=== PATIENT | male | born 1980 | race Caucasian/White ===

== ENCOUNTER 2016-10-30 18:01 | Emergency (ER) | payer BC, OTHER ==
--- NOTE | 2016-10-30 18:41 | ED Physician Documentation ---
Eye Problem - HISTORIAN Historian: patient - HPI Stated Complaint: foreign matter in eye, L Chief Complaint: Eye Problems Onset: hours (2) Associated symptoms: pain, blurred vision Location: left eye Severity: mild Apparent Injury: yes Context: foreign body Where: home Further Comments: yes (Patient was pouring some liquid grout when it slpashed up into his left lateral eye. Patient washed eye with wash sloution. Was wearing a contact, not sure if contact came out with washing the eye. Not sure when last tetanus vac was.) - ROS CONST: no problems. denies: fever, chills - PAST HX Past History: none Allergies/Adverse Reactions: Allergies Allergy/AdvReac Type Severity Reaction Status Date / Time No Known Allergies Allergy Verified 10/30/16 18:16 Home Medications: Ambulatory Orders Medication Instructions Recorded NK [NK] 10/30/16 - SOCIAL HX Smoking History: non-smoker, chew (1 can a day) Alcohol Use: occasionally Drug Use: none - FAMILY HX Family History: no significant history - VITAL SIGNS Vital Signs: Vital Signs Temp Pulse Resp BP Pulse Ox 83 16 98 10/30/16 18:12 10/30/16 18:12 10/30/16 18:12 - REVIEWED ASSESSMENTS Nursing Assessment Reviewed: Yes Vitals Reviewed: Yes Eye Problem Physical Exam - Physical Exam General Appearance: alert, mild distress Visual Acuity: see nursing assessment Eyelids: nml inspection Conjunctiva and Sclera: injected (L) (lateral). No: exudate (L), foreign material (R), foreign material (L), subconjunctival hemorrhage (R), subconjunctival hemorrhage (L) Corneas: nml inspection, examined with fluorescein (L) EOM: intact Pupils: equal Anterior Chambers: nml inspection Post Segments: nml funduscopic (R), nml funduscopic (L) Head/ENT: nml inspection Skin: nml color, warm, skin intact Respiratory: no resp distress, chest non-tender. No: wheezes, rales, rhonchi Abdomen: non-tender, no organomegaly Neuro/Psych: oriented x3, mood/affect nml Discharge Clincal Impression: Conjunctivitis, chemical Qualifiers: Laterality: left Qualified Code(s): H10.212 - Acute toxic conjunctivitis, left eye Additional Instructions: Do not put contact in your left eye for one week. Use Gentak ophthalmic drops 2 drops in left eye 4 times a day for seven days. Home Medications: Ambulatory Orders NK [NK] 10/30/16 Condition: Stable Disposition: HOME, SELF-CARE Decision to Admit: NO Date of Decison to Admit: 10/30/16 Decision Time: 19:05
[2016-10-30] MEDS ORDERED: TETRACAINE HCL/PF 5% OPTH SOL OP ONE ×2 (18:44→18:45)
[2016-10-30] MEDS ORDERED: OPTH IRRIGATION SOLUTION 120 ML BTL OP ONE ×2 (18:45)
[2016-10-30] MEDS ORDERED: GENTAMICIN SULFATE 0.3% OPTH SOL OP ONE (19:01)
[2016-10-30] MEDS ORDERED: DIPH,PERTUSS(ACELL),TET VAC/PF 0.5 ML DISP.SYRIN IM ONE (19:14)
[2016-10-30] MEDS ORDERED: DIPH,PERTUSS(ACELL),TET VAC/PF 0.5 ML DISP.SYRIN IM SCH (20:00)
== END 2016-10-30 19:30 | disposition home or self-care (01) ==
LOC: ED 18:01
DX: H10.212 Acute toxic conjunctivitis, left eye (principal); F17.220 Nicotine dependence, chewing tobacco, uncomplicated
CPT/HCPCS: 90715; 99282; 99283

== ENCOUNTER 2017-08-22 14:14 | Emergency (ER) | payer BC ==
--- NOTE | 2017-08-22 14:35 | ED Physician Documentation ---
General Adult - HISTORIAN Historian: patient - HPI Stated Complaint: abd pain Chief Complaint: General Adult Onset: days ago (1) Timing: still present Severity: moderate Further Comments: yes (Pt is a 37 yo male with RLQ abd pain that began yesterday about 5 pm, about 22 hrs [employer]. Inititally pain was discomfort around her umbilicus. Later pain in the RLQ developed. Pt has been very nauseated, but has not vomited because there is nothing in his stomach, he says. Pt has not been eating and has no desire to eat anything.) - ROS CONST: other (malaise) EYES/ENT: none CVS/RESP: none GI/: abdominal pain, vomiting, nausea, other (loss of appetite) MS/SKIN/LYMPH: none - PAST HX Past History: none Other History: none Allergies/Adverse Reactions: Allergies Allergy/AdvReac Type Severity Reaction Status Date / Time No Known Allergies Allergy Verified 08/22/17 14:40 Home Medications: Ambulatory Orders Medication Instructions Recorded Cephalexin [Keflex] 500 mg PO QID 08/22/17 - SOCIAL HX Smoking History: cigarettes - FAMILY HX Family History: No - REVIEWED ASSESSMENTS Nursing Assessment Reviewed: Yes Vitals Reviewed: Yes Progress - Progress Progress: Zofran 4 mg IV NS [address] abd/pelvis w iv cotrast: Appendicitis. No evidence for abscess or perforation. Transfer to [facility]. Dr. Nelson. General Adult Physical Exam - PHYSICAL EXAM GENERAL APPEARANCE: moderate distress EENT: pharynx normal NECK: normal inspection, supple RESPIRATORY: no resp distress, chest non-tender, breath sounds normal CVS: reg rate & rhythm, heart sounds normal ABDOMEN: soft, normal bowel sounds, tenderness (RLQ), McBurney's point tenderne , rebound BACK: normal inspection SKIN: warm/dry, normal color EXTREMITIES: non-tender, normal range of motion, no evidence of injury NEURO: oriented X3, motor nml, sensation nml Discharge Clincal Impression: Acute appendicitis Qualifiers: Acute appendicitis type: unspecified acute appendicitis type Qualified Code(s) : K35.80 - Unspecified acute appendicitis Referrals: Primary Doctor,No [Primary Care Provider] - Condition: Stable Disposition: [facility] Decision to Admit: NO Decision Time: 15:41
[2017-08-22] MEDS: 0.9 % SODIUM CHLORIDE 500 ML IV ONE (14:49)
[2017-08-22] MEDS: ONDANSETRON HCL/PF 4 MG/ 2ML VIAL IVP ONE (14:50)
[2017-08-22 15:20] LABS: eGFR (African) > 60; eGFR (Non-African) > 60
[2017-08-22 15:55] VITALS: BP 141/78
--- NOTE | 2017-08-22 16:13 | Diagnostic Imaging Report ---
TYLOR FLORES [facility] [id number] [facility] [address] [place] [address]. 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 Findings: Liver demonstrates mild diffuse low attenuation. No central lesion. Spleen, adrenals, pancreas, kidneys and gallbladder are without gross irregularity. No abnormal enhancement. No gallstone. No suspicious renal calcifications bilaterally. No abnormal dilation of the ureters. No central calcifications. Bladder margin is within normal limits. Abdominal aorta without aneurysm or peripheral atherosclerotic disease. Cardiac silhouette not enlarged. No pericardial effusion. Bowel unopacified limiting evaluation. No abnormal small bowel dilation. Stool within the large bowel limiting sensitivity. Mesenteric stranding involving the base of the appendix/cecum. Appendix measures 12.8 mm at this region. Few sigmoid diverticula. No adjacent summation. Osseous structures demonstrates degenerative changes.. Lung bases demonstrate parenchymal scarring. No effusion. Impression: Appendicitis. No evidence for abscess or perforation. No suspicious renal calcifications or abnormal ureteric dilation. No upper abdominal organ acute inflammatory process. No gallstone. Fatty liver. Sigmoid diverticulosis. No evidence for acute diverticulitis. Electronically signed on Aug 22, 2017 3:28:19 PM MACHINE SPRAYER by: Cy MCCLURE
[2017-08-23 09:12] LABS: EOSINOPHILS % 2 % (0-7); MONOCYTES % 4 % (0-11); SEGMENTED NEUTROPHILS % 84 % (39-79)
== END 2017-08-22 16:01 | disposition short-term general hospital (02) ==
LOC: ED 14:14
DX: K35.80 Unspecified acute appendicitis (principal)
CPT/HCPCS: 74177; 80053; 83690; 85025; J2405; J7060; 96361; 96374; 99284; S1016